=== PATIENT | female | born 1940 | race Two or more races ===

== ENCOUNTER 2022-01-23 03:40 | Inpatient (IN) | payer MEDICAID ==
[~2022-01-23] VITALS: Ht 152.4 cm; Wt 61.0 kg
[2022-01-23 04:27] LABS: BASOPHILS % 0.5 % (0.0-2.0); EOSINOPHILS % 3.2 % (0.0-5.0); HEMATOCRIT. 32.3 % (36.0-48.0); HEMOGLOBIN. 10.5 g/dL (12.0-16.0); LYMPHOCYTES % 10.6 % (20.0-50.0); MEAN CORPUSCULAR VOLUME 89.3 fL (81.0-99.0); MEAN PLATELET VOLUME 7.7 fl (7.4-10.4); MONOCYTES % 3.5 % (2.0-8.0); NEUTROPHILS % 82.2 % (40.0-76.0); PLATELET 326 x1000/uL (130-400); RED BLOOD CELL COUNT 3.62 mill/uL (4.2-5.4); RED CELL DISTRIBUTION WIDTH 17.6 % (11.6-14.6)
[2022-01-23 04:47] LABS: CHLORIDE 108 mEq/L (98-107)
[2022-01-23 04:58] LABS: ETHANOL BLOOD < 10 mg/dL
[2022-01-23] MEDS ORDERED: IOHEXOL-350 100 ML BOTTLE ONE (05:10)
[2022-01-23] MEDS ORDERED: DEXTROSE 50% WATER 50ML SYRINGE IV ONE (05:15)
[2022-01-23] MEDS ORDERED: TRAMADOL 50MG TABLET PO PRN (07:00)
[2022-01-23] MEDS ORDERED: ONDANSETRON HCL 4MG/2ML INJ IV PRN (07:00)
[2022-01-23] MEDS ORDERED: DOCUSATE SODIUM 100MG CAPSULE PO PRN (07:00)
[2022-01-23] MEDS ORDERED: GUAIFENESIN 200MG/10ML SUGAR FREE UDC PO PRN (07:00)
[2022-01-23] MEDS ORDERED: MAGNESIUM/ALUMINUM HYDROXIDE/SIMETHICONE 30ML UDC PO PRN (07:00)
[2022-01-23] MEDS ORDERED: ACETAMINOPHEN 325MG TABLET PO PRN (07:00)
[2022-01-23] MEDS: ENOXAPARIN 30MG/0.3ML SYR SUBCUT SCH ×2 (08:53→08:57)
[2022-01-23] MEDS: AMLODIPINE 10MG TABLET PO SCH ×2 (08:53→08:57)
[2022-01-23 12:00] VITALS: BP 111/84
[2022-01-23] MEDS ORDERED: NALOXONE HCL 0.4MG/ML VIAL IV PRN (13:15)
[2022-01-23] MEDS: DEXTROSE 50% WATER 50ML SYRINGE IV PRN ×2 (13:15→21:40)
[2022-01-23] MEDS: DEXT 5%/0.45% NACL 1000ML 1,000 ML IV SCH (14:22)
[2022-01-23 15:00] VITALS: BP 111/84
[2022-01-23] MEDS ORDERED: FURO40TA5 PO (15:32)
[2022-01-23] MEDS ORDERED: METF-874 MT (15:32)
[2022-01-23] MEDS ORDERED: CALC0.253 MT (15:37)
[2022-01-23] MEDS ORDERED: RIVA20TA PO (15:37)
[2022-01-23] MEDS ORDERED: LOSA50TA41 PO (15:37)
[2022-01-23] MEDS ORDERED: HYDR12.54 PO (15:37)
[2022-01-23] MEDS ORDERED: DOCU-150 PO (15:38)
[2022-01-23 16:00] VITALS: BP 117/76
[2022-01-23] MEDS ORDERED: DILTIAZEM HCL 30MG TABLET PO PRN (19:00)
[2022-01-23 20:00] VITALS: BP 148/76
[2022-01-23 21:21] LABS: INR 1.2; PROTHROMBIN TIME 12.9 sec (9.6-11.0)
[2022-01-23] MEDS: LOSARTAN POTASSIUM 50 MG TABLET PO SCH (21:47)
[2022-01-24] VITALS: BP 143/58
[2022-01-24] MEDS: DEXTROSE 50% WATER 50ML SYRINGE IV PRN ×2 (00:25→03:25)
[2022-01-24] MEDS: DEXT 5%/0.45% NACL 1000ML 1,000 ML IV SCH (03:52)
[2022-01-24 04:00] VITALS: BP 129/80
[2022-01-24 08:00] VITALS: BP 145/87
[2022-01-24 08:07] LABS: BASOPHILS % 0.7 % (0.0-2.0); HEMATOCRIT. 30.5 % (36.0-48.0); HEMOGLOBIN. 10.1 g/dL (12.0-16.0); LYMPHOCYTES % 28.2 % (20.0-50.0); MEAN CORPUSCULAR HEMOGLOBIN 29.6 pg (28.0-32.0); MEAN CORPUSCULAR VOLUME 89.5 fL (81.0-99.0); MEAN PLATELET VOLUME 7.7 fl (7.4-10.4); MONOCYTES % 4.7 % (2.0-8.0); NEUTROPHILS % 56.4 % (40.0-76.0); PLATELET 326 x1000/uL (130-400); RED CELL DISTRIBUTION WIDTH 17.7 % (11.6-14.6)
[2022-01-24 08:16] LABS: CHLORIDE 107 mEq/L (98-107)
[2022-01-24 08:24] LABS: HDL CHOLESTEROL 32 mg/dL (40-59); LDL CHOLESTEROL 74 mg/dL (5-100)
[2022-01-24] MEDS ORDERED: ENOXAPARIN 60MG/0.6ML SYR SUBCUT SCH (09:00)
[2022-01-24] MEDS: LOSARTAN POTASSIUM 50 MG TABLET PO SCH (09:02)
[2022-01-24] MEDS: AMLODIPINE 10MG TABLET PO SCH (09:02)
[2022-01-24] MEDS: DILTIAZEM HCL 30MG TABLET PO SCH ×4 (10:33→23:24)
[2022-01-24 12:00] VITALS: BP 125/67
[2022-01-24 15:35] LABS: CLARITY URINE CLEAR (CLEAR); COLOR URINE YELLOW (YELLOW); KETONES URINE NEGATIVE (NEGATIVE); LEUKOCYTE ESTERASE URINE NEGATIVE (NEGATIVE); NITRITE URINE NEGATIVE (NEGATIVE); OCCULT BLOOD URINE NEGATIVE (NEGATIVE); PH URINE 7.5 (4.5-8.0); PROTEIN URINE NEGATIVE (NEGATIVE)
[2022-01-24 15:46] LABS: *AMPHETAMINES SCREEN URINE NEGATIVE (NEGATIVE); *BARBITURATES SCREEN URINE NEGATIVE (NEGATIVE); *BENZODIAZEPINES SCREEN URINE NEGATIVE (NEGATIVE); *COCAINE SCREEN URINE NEGATIVE (NEGATIVE); CANNABINOID URINE SCREEN NEGATIVE (NEGATIVE); METHADONE URINE SCREEN NEGATIVE (NEGATIVE); OPIATES URINE SCREEN NEGATIVE (NEGATIVE); PHENCYCLIDINE URINE SCREEN NEGATIVE (NEGATIVE)
[2022-01-24 16:30] VITALS: BP 119/70
[2022-01-24 20:00] VITALS: BP 136/78
[2022-01-24 20:19] LABS: T4 FREE 1.34 ng/dL (0.76-1.46)
[2022-01-25] VITALS: BP 126/74
[2022-01-25 04:00] VITALS: BP 128/71
[2022-01-25] MEDS: DILTIAZEM HCL 30MG TABLET PO SCH ×2 (05:14→11:23)
[2022-01-25 08:00] VITALS: BP 127/73
[2022-01-25] MEDS ORDERED: ENOXAPARIN 60MG/0.6ML SYR SUBCUT SCH (09:00)
[2022-01-25 12:00] VITALS: BP 118/65
[2022-01-25 12:10] VITALS: BP 118/65
[2022-01-25] MEDS ORDERED: ATORVASTATIN CALCIUM 40MG TABLET PO SCH (14:00)
[2022-01-25 16:00] VITALS: BP 120/78
== END 2022-01-25 17:30 | disposition home or self-care (01) | DRG 47 ==
LOC: ER 03:40 → 8WST 05:55 → ENRESERV 08:37
PROVIDERS: ADMIT Hospitalist; ATTEND Hospitalist
DX: G45.9 Transient cerebral ischemic attack, unspecified (principal); N17.9 Acute kidney failure, unspecified; E11.649 Type 2 diabetes mellitus with hypoglycemia without coma; D68.69 Other thrombophilia; E44.1 Mild protein-calorie malnutrition; E11.22 Type 2 diabetes mellitus with diabetic chronic kidney disease; E78.5 Hyperlipidemia, unspecified; I48.91 Unspecified atrial fibrillation; I12.9 Hypertensive chronic kidney disease with stage 1 through stage 4 chronic kidney disease, or unspecified chronic kidney disease; Z79.899 Other long term (current) drug therapy; M79.606 Pain in leg, unspecified; N18.9 Chronic kidney disease, unspecified; Z20.822 Contact with and (suspected) exposure to COVID-19; Z79.01 Long term (current) use of anticoagulants
CPT/HCPCS: 36415; 70496; 70498; 70551; 71045; 80053; 80061; 80305; 80320; 81003; 82962; 83036; 83880; 84439; 84443; 84484; 85025; 86850; 86900; 87426; 93005; 97162; 99291; J1650; Q9967; G0480